=== PATIENT | male | born 1975 | race Caucasian/White ===

== ENCOUNTER → 2016-11-29 | Outpatient (CLI) | payer OTHER ==
[2015-02-17 23:05] VITALS: BP 159/99
[~2016-11-29] MED LIST: ALPR1TAB2 PO; OXYC-244 PO; WARF6TAB49 PO
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
== END | disposition home or self-care (01) ==
LOC: RAD 14:03
PROVIDERS: ATTEND Surgery
DX: M51.37 Other intervertebral disc degeneration, lumbosacral region (principal)
CPT/HCPCS: 72100